=== PATIENT | female | born 1940 | race American Indian/Alaskan Native ===

== ENCOUNTER 2018-01-11 18:39 | Observation (INO) | payer MEDICARE ==
[2018-01-11 18:39] VITALS: BMI 31.9
--- NOTE | 2018-01-11 19:49 | ED PDOC ---
HPI: Chest Pain Time Seen by Provider: 01/11/18 18:51 Chief Complaint (Nursing): Chest Pain Chief Complaint (Provider): Chest Pain History Per: Patient History/Exam Limitations: no limitations Current Symptoms Are (Timing): Still Present Additional Complaint(s): 77 year old female presents to the ED complaining of chest pain. Patient reports she suddenly felt pressure in the lower midline of her chest associated with nausea which lasted for 10-15 min. After 10-15 min, intensity of pain de creased. Since then pain has moved to the epigastric area. Denies SOB, lightheadedness, and vomiting. Patient is feeling fine today, otherwise. Patient states he had eaten a full meal half an hour before pain started. Denies diarrhea, fever, and chills. Patient has no history of gastritis or r eflux. At onset of pain, patient had taken aspirin and drank jana lb. PMD: Dr. Al Guzman Past Medical History Reviewed: Historical Data, Nursing Documentation, Vital Signs Vital Signs: Last Vital Signs Temp 99.0 F 01/11/18 18:40 Pulse 67 01/11/18 18:40 Resp 16 01/11/18 18:40 BP 164/71 H 01/11/18 18:40 Pulse Ox 98 01/11/18 18:40 - Medical History PMH: Asthma, Bronchitis, HTN, Hypercholesterolemia Denies: CAD, Chronic Kidney Disease - Surgical History Other surgeries: Tubal ligation, angioplasty in the past that demonstrated normal coronary arteries - Family History Family History: States: Hypertension, Other Other Family History: High cholesterol - Social History Current smoker - smoking cessation education provided: No Alcohol: None Drugs: Denies - Home Medications Home Medications: Ambulatory Orders Medication Instructions Recorded RX: Aspirin [Aspirin EC] 1 tab PO DAILY 12/28/14 RX: Dorzolamide 2%/Timolol 0.5% 1 ml BOTHEYES DAILY 12/28/14 [Cosopt 2%-0.5% Opht] RX: Metoprolol Succinate 1 tab PO DAILY 12/28/14 RX: Albuterol HFA [Ventolin HFA 90 1 - 2 puff IH Q4H PRN #1 bottle 06/04/16 mcg/actuation (8 g)] RX: Dorzolamide 2% [Trusopt] 1 drop OU DAILY bottle 01/12/18 RX: Timolol 0.5% Ophth [Timoptic 1 drop OU DAILY bottle 01/12/18 0.5% Ophth Soln] - Allergies Allergies/Adverse Reactions: Allergies Allergy/AdvReac Type Severity Reaction Status Date / Time No Known Allergies Allergy Verified 01/11/18 18:40 Review of Systems ROS Statement: Except As Marked, All Systems Reviewed And Found Negative Constitutional: Negative for: Fever, Chills Cardiovascular: Positive for: Chest Pain Respiratory: Negative for: Shortness of Breath Gastrointestinal: Positive for: Nausea. Negative for: Vomiting, Diarrhea Neurological: Negative for: Other (Light headedness) Physical Exam - Reviewed Nursing Documentation Reviewed: Yes Vital Signs Reviewed: Yes - Physical Exam Appears: Positive for: Non-toxic, No Acute Distress Head Exam: Positive for: ATRAUMATIC, NORMOCEPHALIC Skin: Positive for: Warm, Dry Eye Exam: Positive for: EOMI, PERRL ENT: Negative for: Pharyngeal Erythema, Tonsillar Exudate Neck: Positive for: Painless ROM, Supple Cardiovascular/Chest: Positive for: Regular Rate, Rhythm, Chest Non Tender. Negative for: Murmur Respiratory: Positive for: Normal Breath Sounds. Negative for: Wheezing Gastrointestinal/Abdominal: Positive for: Tenderness (Mild tenderness to deep palpation of epigastric area) Back: Positive for: Normal Inspection. Negative for: Decreased ROM Extremity: Positive for: Normal ROM. Negative for: Deformity Lymphatic: Negative for: Adenopathy Neurologic/Psych: Positive for: Alert. Negative for: Motor/Sensory Deficits - Laboratory Results Result Diagrams: 01/11/18 19:55 01/11/18 19:55 - ECG ECG Rhythm: Positive for: Normal QRS, Normal ST Segment, Sinus Rhythm (normal) Rate: 65 O2 Sat by Pulse Oximetry: 98 (RA) Pulse Ox Interpretation: Normal Medical Decision Making Medical Decision Making: Initial Impression: indigestion, reflux, ACS, pancreatitis Initial Plan: --Type and screen --ECG --B-Type natriuretic peptide stat --CMP --Lact acid stat --Lipase stat --Magnesium stat --Phosphorous stat --Troponin --ED urine dipstick --CBC --Partial thromboplastin --Prothrombin --Chest X-ray Labs unremarkable. HEART [facility] RESULT SUMMARY: 5 points HEART Pathway Score High risk 1265% 30-day MACE Admit to hospital or observation. Further testing indicated. INPUTS: History > 0 = Slightly suspicious EKG > 1 = Non-specific repolarization disturbance Age > 2 = equal or over 65 Risk factors > 2 = equal to or over 3 risk factors or history of atherosclerotic disease Initial troponin > 0 = normal limit DW Dr [facility] for observation for chest pain with high risk for MACE Request Dr Louis for Cardiology consult Scribe Attestation: Documented by Rasheed Guzman acting as a scribe for Saira Arechiga MD. Provider Scribe Attestation: All medical record entries made by the Scribe were at my direction and personally dictated by me. I have reviewed the chart and agree that the record accurately reflects my personal performance of the history, physical exam, medical decision making, and the department course for this patient. I have also personally directed, reviewed, and agree with the discharge instructions and disposition. Disposition - Clinical Impression Clinical Impression: Chest pain Counseled Patient/Family Regarding: Studies Performed, Diagnosis - Disposition Disposition Time: 23:00 Condition: FAIR - Pt Status Changed To: Hospital Disposition Of: Observation - POA Present On Arrival: None
[2018-01-11 20:36] LABS: HEMOGLOBIN 11.7 g/dL (12.0-16.0); LYMPH % 26.1 % (20.0-40.0); MEAN CORPUSCULAR HEMOGLOBIN 28.3 pg (27.0-31.0); MEAN CORPUSCULAR HGB CONC 32.9 g/dL (33.0-37.0); MEAN PLATELET VOLUME 9.5 fl (7.2-11.7); NEUT % 63.3 % (50.0-75.0); RBC 4.14 Mil/uL (3.80-5.20); RED CELL DISTRIBUTION WIDTH 15.2 % (11.5-14.5); WHITE BLOOD COUNT 7.6 K/uL (4.8-10.8)
[2018-01-11 20:37] LABS: BASO # 0.1 K/uL (0.0-0.2); BASO % 1.3 % (0.0-2.0); EOS # 0.1 K/uL (0.0-0.7); EOS % 1.6 % (0.0-4.0); MONO # 0.6 K/uL (0.0-0.8); MONO % 7.7 % (0.0-10.0); NEUT # 4.8 K/uL (1.8-7.0)
[2018-01-11 20:38] LABS: PROTHROMBIN TIME 11.5 Seconds (9.8-13.1)
[2018-01-11 20:41] LABS: PARTIAL THROMBOPLASTIN TIME 31.1 Seconds (25.6-37.1)
[2018-01-11 20:48] LABS: ALB/GLOB RATIO 1.1 (1.0-2.1); ALBUMIN 4.1 g/dL (3.5-5.0); ALT/SGPT 63 U/L (9-52); AST/SGOT 119 U/L (14-36); BLOOD UREA NITROGEN 12 mg/dl (7-17); CALCIUM 9.6 mg/dL (8.4-10.2); GFR NON-AFRICAN AMERICAN > 60; LIPASE 70 U/L (23-300)
[2018-01-11 20:55] LABS: B-TYPE NATRIURETIC PEPTIDE 255 pg/ml (0-900)
[2018-01-12] MEDS ORDERED: Albuterol HFA 90 mcg/actuation (8 g) IH PRN (05:55)
--- NOTE | 2018-01-12 07:58 | CARD ---
APPROVED REPORT Date of service: 01/11/2018 EKG Measurement Heart [id number] <Conclusion> Normal sinus rhythm Normal ECG
[2018-01-12 08:24] VITALS: RESP 20; O2SAT 98
--- NOTE | 2018-01-12 08:38 | RAD ---
Date of service: 01/11/2018 HISTORY: chest pain COMPARISON: 06/04/2016 FINDINGS: LUNGS: No active pulmonary disease. There is overlap of density in the right medial apex by bony structures and probable great vessels. PLEURA: No significant pleural effusion identified, no pneumothorax apparent. CARDIOVASCULAR: Unchanged. No CHF. OSSEOUS STRUCTURES: No significant abnormalities. VISUALIZED UPPER ABDOMEN: Normal. OTHER FINDINGS: None. IMPRESSION: No active disease.
[2018-01-12] MEDS ORDERED: METOPROLOL SUCCINATE PO SCH (09:00)
[2018-01-12] MEDS ORDERED: Metoprolol Succinate 50 mg XL Tab PO SCH (09:00)
[2018-01-12] MEDS ORDERED: Dorzolamide 2% Ophth Soln OU SCH (09:00)
[2018-01-12] MEDS ORDERED: Enoxaparin 40 mg Syringe SC SCH (09:00)
--- NOTE | 2018-01-12 10:50 | CP.PCM.CON ---
History of Present Illness - History of Present Illness History of Present Illness: This 77-year-old female a long-standing hypertensive with excellent effort tolerance (she can walk up to a mile without having to stop) came into the emergency room complaining of lower retrosternal discomfort after a meal. This did not occur during physical exertion and did not radiate up into her jaw or down her arms and was not accompanied by any perspiration nausea or vomiting. She arrived in the emergency room and an electrocardiogram was recorded while the discomfort still was weaning. She is not a smoker or diabetic. She is being treated for abnormal cholesterol. There is a family history of hypertension but no history of vascular disease. The patient has never experienced any effort related chest pain or myocardial infarction or symptoms of congestive cardiac failure. Physical examination shows an elderly pleasant -[place] Citizen female who is alert awake and coherent. She is able to lie virtually flat and carry on a conversation. She breathes at 14 breaths per minute and has a heart rate of 70 bpm and regular. Her pedal pulses were well felt. Her blood pressure was 146/70 mmHg. Her jugular venous pressure was not elevated and there was no edema over her lower extremity. The extremities were warm and nailbeds were pink. There was no central or peripheral cyanosis. The apex was not palpable. The first and second heart sounds were normal. There was no murmur or gallop. There were no rales. Her electro-cardial gram showed sinus rhythm with a normal EKG pattern(this was recorded in the emergency room while the patient still experienced some chest discomfort). This cardiogram corresponded to her earlier tracings going as far back as 2014. 2 sets of troponin samples were negative for any evidence of myocyte injury. The rest of her labs were noted. Impression: Atypical chest pain with no evidence of acute coronary syndrome. The patient may be allowed to return home to continue her management as an outpatient. The patient was reassured regarding her present reason for admission to the hospital. Past Patient History - Past Medical History & Family History Past Medical History?: Yes - Past Social History Smoking Status: Never Smoked - CARDIAC Hx Cardiac Disorders: Yes Hx Hypercholesterolemia: Yes Hx Hypertension: Yes - PULMONARY Hx Respiratory Disorders: Yes Hx Asthma: Yes Hx Bronchitis: Yes - NEUROLOGICAL Hx Neurological Disorder: No - HEENT Hx HEENT Problems: Yes Hx Glaucoma: Yes - RENAL Hx Chronic Kidney Disease: No - ENDOCRINE/METABOLIC Hx Endocrine Disorders: No - HEMATOLOGICAL/ONCOLOGICAL Hx Blood Disorders: No - INTEGUMENTARY Hx Dermatological Problems: No - MUSCULOSKELETAL/RHEUMATOLOGICAL Hx Musculoskeletal Disorders: Yes Hx Falls: No Hx Gout: Yes - GASTROINTESTINAL Hx Gastrointestinal Disorders: No - GENITOURINARY/GYNECOLOGICAL Hx Genitourinary Disorders: No - PSYCHIATRIC Hx Psychophysiologic Disorder: No Hx Substance Use: No - SURGICAL HISTORY Hx Surgeries: Yes Hx Tubal Ligation: Yes - ANESTHESIA Hx Anesthesia: Yes Hx Anesthesia Reactions: No Hx Malignant Hyperthermia: No Meds Allergies/Adverse Reactions: Allergies Allergy/AdvReac Type Severity Reaction Status Date / Time No Known Allergies Allergy Verified 01/11/18 18:40 - Medications Medications: Current Medications Albuterol (Ventolin Hfa 90 Mcg/Actuation (8 G)) 1 puff IH Q4H PRN PRN Reason: Wheezing Aspirin (Ecotrin) 81 mg PO DAILY [facility] Last Admin: 01/12/18 09:33 Dose: 81 mg Dorzolamide HCl (Trusopt) 1 drop OU DAILY [facility] Last Admin: 01/12/18 09:35 Dose: 1 drop Enoxaparin Sodium (Lovenox) 40 mg SC DAILY [facility]; Protocol Last Admin: 01/12/18 09:33 Dose: 40 mg Metoprolol Succinate (Toprol Xl) 50 mg PO DAILY [facility] Last Admin: 01/12/18 09:33 Dose: 50 mg Timolol Maleate (Timoptic 0.5% Oph Soln) 1 drop OU DAILY [facility] Last Admin: 01/12/18 09:34 Dose: 1 drop Results - Vital Signs Recent Vital Signs: Last Vital Signs Temp 97.6 F 01/12/18 08:23 Pulse 60 01/12/18 09:33 Resp 20 01/12/18 08:23 BP 165/76 H 01/12/18 09:33 Pulse Ox 98 01/12/18 08:23 - Labs Result Diagrams: 01/11/18 19:55 01/11/18 19:55 Labs: Laboratory Results - last 24 hr 01/11/18 01/11/18 01/11/18 19:55 19:55 19:55 WBC 7.6 RBC 4.14 Hgb 11.7 L Hct 35.6 MCV 86.0 MCH 28.3 MCHC 32.9 L RDW 15.2 H Plt Count 244 MPV 9.5 Neut % (Auto) 63.3 Lymph % (Auto) 26.1 [place] % (Auto) 7.7 Eos % (Auto) 1.6 Baso % (Auto) 1.3 Neut # (Auto) 4.8 Lymph # (Auto) 2.0 [place] # (Auto) 0.6 Eos # (Auto) 0.1 Baso # (Auto) 0.1 PT 11.5 INR 1.0 APTT 31.1 Sodium 139 Potassium 4.6 Chloride 106 Carbon Dioxide 26 Anion Gap 12 BUN 12 Creatinine 0.7 Est GFR ( Amer) > 60 Est GFR (Non-Af Amer) > 60 Random Glucose 107 H Lactic Acid Calcium 9.6 Phosphorus 3.3 Magnesium 1.9 Total Bilirubin 0.3 AST 119 H ALT 63 H D Alkaline Phosphatase 107 Troponin I < 0.0120 NT-Pro-B Natriuret Pep 255 Total Protein 7.7 Albumin 4.1 Globulin 3.6 Albumin/Globulin Ratio 1.1 Lipase 70 Blood Type Blood Type Confirm Antibody Screen BBK History Checked 01/11/18 01/11/18 01/11/18 19:55 20:27 21:50 WBC RBC Hgb Hct MCV MCH MCHC RDW Plt Count MPV Neut % (Auto) Lymph % (Auto) [place] % (Auto) Eos % (Auto) Baso % (Auto) Neut # (Auto) Lymph # (Auto) [place] # (Auto) Eos # (Auto) Baso # (Auto) PT INR APTT Sodium Potassium Chloride Carbon Dioxide Anion Gap BUN Creatinine Est GFR ( Amer) Est GFR (Non-Af Amer) Random Glucose Lactic Acid 1.0 Calcium Phosphorus Magnesium Total Bilirubin AST ALT Alkaline Phosphatase Troponin I NT-Pro-B Natriuret Pep Total Protein Albumin Globulin Albumin/Globulin Ratio Lipase Blood Type B POSITIVE Blood Type Confirm B POSITIVE Antibody Screen Negative BBK History Checked No verified bt 01/12/18 03:18 WBC RBC Hgb Hct MCV MCH MCHC RDW Plt Count MPV Neut % (Auto) Lymph % (Auto) [place] % (Auto) Eos % (Auto) Baso % (Auto) Neut # (Auto) Lymph # (Auto) [place] # (Auto) Eos # (Auto) Baso # (Auto) PT INR APTT Sodium Potassium Chloride Carbon Dioxide Anion Gap BUN Creatinine Est GFR ( Amer) Est GFR (Non-Af Amer) Random Glucose Lactic Acid Calcium Phosphorus Magnesium Total Bilirubin AST ALT Alkaline Phosphatase Troponin I < 0.0120 NT-Pro-B Natriuret Pep Total Protein Albumin Globulin Albumin/Globulin Ratio Lipase Blood Type Blood Type Confirm Antibody Screen BBK History Checked
[2018-01-12 12:49] VITALS: BP 137/69; TEMP 98.3
--- NOTE | 2018-01-12 18:25 | HP ---
CHIEF COMPLAINT: Chest pain. HISTORY OF PRESENT ILLNESS: This is a 77-year-old female, known case of elevated cholesterol, hypertension, asthma, glaucoma, who was having chest pain, so the patient was brought to the emergency room and was admitted for further management. REVIEW OF SYSTEMS: Review of system at this time is negative for headache, dizziness, syncope, loss of consciousness, chest pain, shortness of breath, nausea, vomiting, diarrhea, and constipation. No new joint or extremity pain. Review of system of all other organ system is unremarkable. PAST MEDICAL HISTORY: Significant for elevated cholesterol, bronchial asthma, and hypertension. PAST SURGICAL HISTORY: Remarkable for coronary artery disease. The patient probably just had angiogram. MEDICATIONS: The patient is on aspirin, Cozaar, metoprolol, Tamiflu, prednisone, Ventolin, or Augmentin. ALLERGIES: THE PATIENT IS NOT ALLERGIC TO ANY MEDICATIONS. FAMILY HISTORY: Noncontributory. PHYSICAL EXAMINATION: GENERAL: Well built, well nourished, overweight 77-year-old female, in no acute distress. VITAL SIGNS: Temperature 97.3, pulse 59, respirations 18, blood pressure 149/74, and saturation 99%. HEENT: Pupils reacting to light. No JVD. No thyromegaly. No lymphadenopathy. No nystagmus. Normocephalic, atraumatic skull. HEART: S1 and S2. Normal and regular. No significant murmur, gallops, or rubs are heard. LUNGS: Good bilateral air exchange. No rales or rhonchi. ABDOMEN: Soft and nontender. No organomegaly. No fluid. Bowel sounds are plus and normal. EXTREMITIES: No edema. No calf swelling. No tenderness. No acute ischemia. COMMISSARY SUPERINTENDENT: Exam is essentially unchanged. DIAGNOSTIC DATA: Available diagnostic data reviewed. WBC 7.6, hemoglobin 11.7, hematocrit 35.6, and platelets 244. Sodium 139, potassium 4.6, chloride 106, bicarb 26, BUN 12, creatinine 0.7. SMA-12 shows ALT of 53. Cardiac profile two sets are negative. Chest x-ray is clear. EKG does not reveal any acute ST-T changes. ADMITTING IMPRESSION: 1. Chest pain, rule out acute coronary syndrome. 2. Hypertension. 3. Elevated cholesterol. 4. Obesity. PLAN: As ordered. Jovon Agudelo MD
[2018-01-12 18:32] VITALS: PULSE 65
== END 2018-01-12 13:00 | disposition home or self-care (01) ==
LOC: H.ER 18:39 → H.ERHOLD 21:16 → H.TEL 23:13
PROVIDERS: ADMIT Internal Medicine; ATTEND Internal Medicine
DX: R07.89 Other chest pain (principal); J45.909 Unspecified asthma, uncomplicated; K21.9 Gastro-esophageal reflux disease without esophagitis; Z82.49 Family history of ischemic heart disease and other diseases of the circulatory system; M10.9 Gout, unspecified; E66.9 Obesity, unspecified; E78.00 Pure hypercholesterolemia, unspecified; H40.9 Unspecified glaucoma; I10 Essential (primary) hypertension
CPT/HCPCS: 36415; 71045; 80053; 83605; 83690; 83735; 83880; 84100; 84484; 85025; 85610; 85730; 86850; 86900; 93005; G0378; J1650